=== PATIENT | female | born 1990 | race American Indian/Alaskan Native ===

== ENCOUNTER 2022-04-27 22:34 | Inpatient (IN) | payer MEDICAID ==
[2022-04-27] MEDS ORDERED: LACTATED RINGERS 1,000 ML ONE (23:12)
[2022-04-27] MEDS ORDERED: LACTATED RINGERS 1,000 ML IV ONE (23:45)
[2022-04-28] MEDS ORDERED: ACETAMINOPHEN 325 MG TAB PO PRN ×2 (00:24→02:54)
[2022-04-28] MEDS ORDERED: CARBOPROST TROMETHAMINE 250 MCG/1 ML INJ IM PRN (00:24)
[2022-04-28] MEDS ORDERED: OXYTOCIN 10 UNIT/1 ML INJ IM PRN (00:24)
[2022-04-28] MEDS ORDERED: METHYLERGONOVINE MALEATE 0.2 MG/ML VIAL IM PRN (00:24)
[2022-04-28] MEDS ORDERED: MINERAL OIL 30 ML ORAL LIQD PO PRN (00:24)
[2022-04-28] MEDS ORDERED: ePHEDrine SULFATE 50 MG/1 ML INJ IV PRN (00:24)
[2022-04-28] MEDS ORDERED: fentaNYL 100 MCG/2 ML INJ IV PRN (00:24)
[2022-04-28] MEDS ORDERED: LOPERAMIDE 2 MG CAP PO PRN (00:24)
[2022-04-28] MEDS ORDERED: BUTORPHANOL 2 MG/1 ML INJ IV PRN ×2 (00:24)
[2022-04-28] MEDS ORDERED: LIDOCAINE (2%) 20 MG/1 ML VIAL 20 ML MDV INFILTRATI ONE (00:24)
[2022-04-28] MEDS ORDERED: miSOPROStol 200 MCG TAB PR PRN (00:24)
[2022-04-28] MEDS ORDERED: TERBUTALINE 1 MG/1 ML INJ SUB-Q PRN (00:24)
[2022-04-28] MEDS ORDERED: LACTATED RINGERS 1,000 ML IV SCH (00:30)
[2022-04-28] MEDS ORDERED: AMPICILLIN/NS 2 GM/100 ML 2 GM/100 ML BAG IV ONE (00:33)
[2022-04-28 01:00] LABS: Hematocrit 31.5 % (30.3-42.9); Hemoglobin 10.6 gm/dl (10.1-14.3); Mean Corpuscular HGB Conc 34 % (30-34); Mean Corpuscular Volume 92 fl (79-97); Platelet Count 142 K/mm3 (140-440); Red Blood Count 3.42 M/mm3 (3.65-5.03); Red Cell Distribution Width 15.8 % (13.2-15.2)
[2022-04-28] MEDS ORDERED: OXYTOCIN DRIP 30 UNITS/500 ML BAG IV SCH ×2 (01:00)
--- NOTE | 2022-04-28 01:00 | History and Physical Report ---
History of Present Illness Date of examination: 04/28/22 Chief complaint: Labor - changed from 3 to 6 cms in 1 hr History of present illness: EDC Calculations by LMP: 04/24/2022 Past History : 2 Term Births: 1 Premature Births: 0 Living Children: 1 Para: 1 Mult. Births: 0 Prev : 0 Aborta: 0 Elect. Ab: 0 Spont. Ab: 0 Ectopics: 0 # 1 Delivery date: 02/14/2020 Weeks Gestation: 40 Delivery type: Vaginal Anesthesia type: none Delivery location: [facility] Infant Sex: female weight: 6.63 Comments: none Past Medical History: Reviewed history from 01/19/2020 and no changes required: Asthma Past Surgical History: Reviewed and updated today: negative Social History: Reviewed history from 01/19/2020 and no changes required: Marital Status: single Children: 1 Occupation: unemployed Risk Factors: Smoked Tobacco Use: Never smoker Smokeless Tobacco Use: Never Passive Smoke Exposure: no HIV High Risk Behavior: low risk Exercise: no Seatbelt Use: 100 % No Dietary Counseling Reason: pn yes Alcohol Use: no Drug Use: no Past Medical History Anesthesia Complications: negative Anemia: negative Autoimmune Disorder: negative Bleeding Disorder: negative Blood Transfusions: negative Breast Disease: negative Diabetes: negative Heart Disease: negative Hypertension: negative Hepatitis/Liver Disease: negative Kidney Disease/UTI: negative Neurologic/Epilepsy/Migraines: negative Phlebitis/Varicosities: negative Psychiatric: negative Pulmonary Disease/Asthma: negative Thyroid Disease: negative Hospitalizations: negative Surgery (Non-nurse obgyn): negative Abnormal PAP: negative Uterine Anomaly: negative Uterine Surgery (not C/S): negative Social Hx: Marital Status: single Children: 0 Occupation: unemployed Infection History Hx of STD: gonorrhea HIV Risk Eval: low risk Personal hx. of genital herpes: no Genetic History Congenital Heart Defect: Mom: no Ishan Disease: Mom: no Thalassemia Mom: no Neural Tube Defect Mom: no Down's Syndrome Mom: no Dionisio-Sachs Mom: no Sickle Cell Disease/Trait Mom: no Hemophilia Mom: no Muscular Dystrophy Mom: no Cystic Fibrosis Mom: no Jenae Chorea Mom: no Mental Retardation Mom: no Fragile X Mom: no Other Genetic/Chromosomal Disorder Mom: no Child w/other defect Mom: no Enviromental Exposures Xray Exposure: no Medication, drug, or alcohol use since LMP: no Chemical/Other Exposure: no Exposure to Cat Liter: no Hx of Parvovirus (Fifth Disease): no Occupational Exposure to Children: none Active Medications: Vitamin 27 mg iron- 800 mcg tablet ( vit [id number]) Take 1 tablet by mouth once a day VITAMIN PLUS LOW IRON 27-1 MG ORAL TABLET ( VIT-FE FUMARATE-FA) 1 po q day as directed ALBUTEROL SULFATE (2.5 MG/3ML) 0.083% INHALATION NEBULIZATION SOLUTION (ALBUTEROL SULFATE) Current Allergies: No known allergies Past History Past Medical History: other (see HPI) Past Surgical History: other (see HPI) VP SITE History: other (see HPI) Family/Genetic History: other (see HPI) Social history: no significant social history - Obstetrical History Expected Date of Delivery: 04/24/22 Actual Gestation: 40 Week(s) 4 Day(s) : 2 Para: 1 Hx # Term Pregnancies: 1 Number of Pregnancies: 0 Spontaneous Abortions: 0 Induced : 0 Number of Living Children: 1 Medications and Allergies Allergies Allergy/AdvReac Type Severity Reaction Status Date / Time peanut Allergy Itching Verified 02/13/20 23:54 Active Meds: Active Medications Acetaminophen (Acetaminophen 325 Mg Tab) 650 mg PO Q4H PRN PRN Reason: Pain, Mild (1-3) Butorphanol Tartrate (Butorphanol 2 Mg/1 Ml Inj) 2 mg IV Q2H PRN PRN Reason: Pain , Severe (7-10) Butorphanol Tartrate (Butorphanol 2 Mg/1 Ml Inj) 1 mg IV Q2H PRN PRN Reason: Pain, Moderate(4-6) LABOR PAIN Carboprost Tromethamine (Carboprost Tromethamine 250 Mcg/1 Ml Inj) 250 mcg IM ONCE PRN PRN Reason: Uterine Bleeding Ephedrine Sulfate (Ephedrine Sulfate 50 Mg/1 Ml Inj) 10 mg IV Q2M PRN PRN Reason: Hypotension Fentanyl (Fentanyl 100 Mcg/2 Ml Inj) 100 mcg IV Q2H PRN PRN Reason: Pain,Severe (7-10) LABOR PAIN Oxytocin/Sodium Chloride (Pitocin/Ns 30 Unit/500ml) 30 units in 500 mls @ 2 mls/hr IV TITR JW; Protocol Lactated Ringer's (Lactated Ringers) 1,000 mls @ 125 mls/hr IV DIRECT JW Oxytocin/Sodium Chloride (Pitocin/Ns 30 Unit/500ml) 30 units in 500 mls @ 40 mls/hr IV TITR JW; Protocol Loperamide HCl (Loperamide 2 Mg Cap) 2 mg PO ONCE PRN PRN Reason: give with Hemabate Methylergonovine Maleate (Methylergonovine Maleate 0.2 Mg/Ml Vial) 0.2 mg IM ONCE PRN PRN Reason: Uterine Bleeding Mineral Oil (Mineral Oil 30 Ml Oral Liqd) 30 ml PO QHS PRN PRN Reason: Constipation Misoprostol (Misoprostol 200 Mcg Tab) 800 mcg SC ONCE PRN PRN Reason: Uterine Bleeding Oxytocin (Oxytocin 10 Unit/1 Ml Inj) 10 unit IM ONCE PRN PRN Reason: Uterine Bleeding Terbutaline Sulfate (Terbutaline 1 Mg/1 Ml Inj) 0.25 mg SUB-Q ONCE PRN PRN Reason: Hyperstimulation/Hypertonicity Review of Systems All systems: negative - Vital Signs Vital signs: Vital Signs Temp 99.3 F 04/27/22 22:56 Temp Pulse Resp BP Pulse Ox 99.3 F 04/27/22 22:56 - Physical Exam Breasts: Positive: normal Cardiovascular: Regular rate Lungs: Positive: Clear to auscultation, Normal air movement Abdomen: Positive: normal appearance, soft Genitourinary (Female): Positive: normal perenium, other (right sided mass of the vulva) Vagina: Positive: normal moisture Anus/Rectum: Positive: normal perianal skin Extremities: Positive: normal Deep Tendon Reflex Grade: Normal +2 - Obstetrical FHR: auscultation normal Uterine Contraction Monitor Mode: External Cervical Dilatation: 10 (SROM at delivery ) Cervical Effacement Percentage: 100 station: +3 Uterine Contraction Pattern: Regular Uterine Tone Measurement Phase: Contraction Uterine Contraction Intensity: Strong/Firm Results Result Diagrams: 04/28/22 00:28 All other labs normal. Assessment and Plan pt arrived and labored quickly and progressed to 10cm. pt delivered shortly after provider arrived. GBS +, not treated d/t precipitous delivery. complicated by right sided vuvlar mass treated @ 37 weeks. - Patient Problems (1) 40 weeks gestation of Current Visit: Yes Status: Acute (2) GBS carrier Current Visit: Yes Status: Acute
--- NOTE | 2022-04-28 01:06 | Procedure Note ---
OB Delivery Note - Delivery Date of Delivery: 04/28/22 [employer]man: SHUKRI SAHA Estimated blood loss: 200cc - Vaginal Delivery presentation: vertex Delivery position: OA Intrapartum events: precipitous labor- <3hr Delivery induction: none Delivery monitor: external FHT, external uterine Route of delivery: Delivery placenta: spontaneous Delivery cord: 3 umbilical vessels Episiotomy: none Delivery laceration: none Anesthesia: none Delivery comments: baby precipitously delivered over intact perineum, SROM clear fluid right before delivery. Baby placed skin to skin, 3 vessel cord clamped and cut. placenta delivered intact and complete. no lacs to repair. fundus firm, lochia scant. all counts correct. EBL 200. - A at 1 minute: 8 at 5 minutes: 9 Gender: Male (8#1oz)
[2022-04-28] MEDS ORDERED: BENZOCAINE/MENTHOL 20/0.5% TOP SPRAY 56 GM TP PRN (02:54)
[2022-04-28] MEDS ORDERED: PROMETHAZINE 25 MG TAB PO PRN (02:54)
[2022-04-28] MEDS ORDERED: diphenhydrAMINE 25 MG CAP PO PRN (02:54)
[2022-04-28] MEDS ORDERED: WITCH HAZEL/ GLYCERIN PAD TP PRN (02:54)
[2022-04-28] MEDS ORDERED: KETOROLAC 30 MG/1 ML INJ IV PRN (02:54)
[2022-04-28] MEDS ORDERED: ONDANSETRON 4 MG/2 ML INJ IV PRN (02:54)
[2022-04-28] MEDS ORDERED: LANOLIN/ZINC/DIMETHICONE (LANSINOH) 7 GM TP PRN (02:54)
[2022-04-28] MEDS ORDERED: MAGNESIUM HYDROXIDE (MOM) ORAL LIQD UDC PO PRN (02:54)
[2022-04-28] MEDS: IBUPROFEN 800 MG TAB PO SCH ×4 (04:28→23:42)
--- NOTE | 2022-04-28 08:26 | Progress Note ---
Assessment and Plan A: 31 y.o. s/p . - Patient Problems (1) Spontaneous vaginal delivery Current Visit: No Status: Acute Plan to address problem: Continue with care. Anticipate discharge home on 04/29. Subjective - Subjective Date of service: 04/28/22 Principal diagnosis: s/p Patient reports: appetite normal, voiding normally, pain well controlled, ambulating normally : doing well Objective - Vital Signs Latest vital signs: Vital Signs Temp Pulse Resp BP Pulse Ox Pulse Ox 04/28/22 04:37 97.8 F 92 H 18 103/62 99 04/28/22 02:40 98 04/28/22 02:37 97.8 F 96 H 18 113/71 98 04/28/22 01:15 99 04/28/22 01:14 98.4 F 04/27/22 22:56 99.3 F Intake and Output 04/27/22 04/28/22 04/28/22 22:59 06:59 14:59 Intake Total 200 Output Total 800 Balance -600 Intake: Oral 200 Output: Urine 800 Void 800 Other: Total, Intake Amount 200 Total, Output Amount 600 Weight 137 lb Estimated Blood Loss 100 - Exam Cardiovascular: Present: Regular rate Lungs: Present: Normal air movement Abdomen: Present: normal appearance, soft Vulva: both: normal Uterus: Present: normal, other (Light lochia rubra noted. ) Extremities: Present: normal - Labs Labs: Abnormal lab results 04/28/22 Range/Units 00:28 RBC 3.42 L (3.65-5.03) M/mm3 RDW 15.8 H (13.2-15.2) %
[2022-04-28] MEDS: PRENATAL VIT27-FE FUMARATE-FOLIC ACID VIT TAB PO SCH (09:16)
[2022-04-28 14:24] LABS: Hematocrit 30.5 % (30.3-42.9); Hemoglobin 10.1 gm/dl (10.1-14.3)
[2022-04-29] MEDS: IBUPROFEN 800 MG TAB PO SCH ×3 (05:25→21:30)
[2022-04-29] MEDS ORDERED: TETANUS,DIPH,PERTUSS(ACELL) VACCINE 0.5 ML SYRINGE IM ONE (06:00)
--- NOTE | 2022-04-29 08:45 | Discharge Summary ---
Providers - Providers Date of Admission: 04/28/22 00:25 Date of discharge: 04/29/22 (desires d/c home) Attending physician: STEVENSON MCGOVERN 04/28/22 02:54 Consult to Electric Refrigerator Preparer [CONS] Routine Reason For Exam: assistance with , SNS Primary care physician: STEVENSON MCGOVERN Hospitalization Reason for admission: Labor Condition: Good Pertinent studies: post delivery H&H 10.1/30.5 Procedures: Hospital course: uncomplicated and period Disposition: 01 HOME / SELF CARE / HOMELESS Final Discharge Diagnosis (Prints w/discharge instructions): vaginal Time spent for discharge: 20 - Discharge Diagnoses (1) Spontaneous vaginal delivery Status: Acute Core Measure Documentation - Palliative Care Palliative Care/ Comfort Measures: Not Applicable - Core Measures Any of the following diagnoses?: none Exam - Constitutional Vitals: Temp Pulse Resp BP Pulse Ox 97.8 F 78 18 101/77 98 04/29/22 00:51 04/29/22 00:51 04/29/22 01:09 04/29/22 00:51 04/29/22 02:00 General appearance: Present: no acute distress, well-nourished - EENT Eyes: Present: PERRL ENT: hearing intact, clear oral mucosa - Neck Neck: Present: supple, normal ROM - Respiratory Respiratory effort: normal Respiratory: bilateral: CTA - Cardiovascular Rhythm: regular Heart Sounds: Absent: rub, click - Extremities Extremities: No edema Peripheral Pulses: within normal limits - Abdominal General gastrointestinal: Present: soft, non-tender, non-distended, normal bowel sounds Female genitourinary: Present: normal - Integumentary Integumentary: Present: clear, warm, dry - Musculoskeletal Musculoskeletal: gait normal, strength equal bilaterally - Psychiatric Psychiatric: appropriate mood/affect, intact judgment & insight - Neurologic Neurologic: CNII-XII intact, moves all extremities - Additional findings Additional findings: lochia scant, fundus firm, Plan Activity: no restrictions Diet: regular Follow up with: STEVENSON MCGOVERN MD [Primary Care Provider] - 7 Days (Congratulations! Please call [phone] to schedule your son's circumcision in 1 week and your visit in 4-6 weeks. Bring EMLA cream to your son's appointment and await further teaching. Call for any questions or concerns. ) Prescriptions: Lidocain2.5%/Prilocai2.5% [Emla] 1 applic TP ONCE #1 tube Ibuprofen [Motrin] 800 mg PO Q8HR PRN #30 tablet PRN Reason: Pain, Moderate (4-6)
[2022-04-29] MEDS: PRENATAL VIT27-FE FUMARATE-FOLIC ACID VIT TAB PO SCH (11:25)
[2022-04-29 20:33] VITALS: BP 112/72
== END 2022-04-29 21:40 | disposition home or self-care (01) | DRG 775 ==
LOC: TRG 22:34 → APU 22:36 → TRG 04-28 00:24 → LD 04-28 00:25 → OB 04-28 03:01
PROVIDERS: ADMIT Obstetrics & Gynecology; ATTEND Obstetrics & Gynecology
PROC: 10E0XZZ Delivery of Products of Conception, External Approach (ICD-10-PCS; principal; 2022-04-28)
PROC: 3E0234Z Introduction of Serum, Toxoid and Vaccine into Muscle, Percutaneous Approach (ICD-10-PCS; 2022-04-29)
DX: O62.3 Precipitate labor (principal); Z37.0 Single live birth; Z3A.40 40 weeks gestation of pregnancy; Z20.822 Contact with and (suspected) exposure to COVID-19; Z23 Encounter for immunization; O99.52 Diseases of the respiratory system complicating childbirth; J45.909 Unspecified asthma, uncomplicated; O99.824 Streptococcus B carrier state complicating childbirth; Z91.010 Allergy to peanuts
CPT/HCPCS: 36415; 85014; 85018; 85027; 86850; 86900; 86901; 90471; 90715; G0378; J2590; J7120; U0003